=== PATIENT | male | born 1950 | race Caucasian/White ===

== ENCOUNTER 2020-01-25 00:34 | Emergency (ER) | payer MEDICARE, OTHER ==
[~2020-01-25] VITALS: Ht 170.2 cm; Wt 82.0 kg
--- NOTE | 2020-01-25 00:53 | NUR ---
69 YEAR OLD MALE TO ED VIA [facility] FOR PALPITATIONS. HE STATES HE HAS BEEN HAVING THESE PALPITATIONS FOR 1 WEEK BUT THEY HAVE WORSENED TODAY. SYMPTOMS STARTED AT 2330 AND PRODUCED FATIGUE AND NAUSEA. HE DENIES SOB, DIAPHORESIS, DYSPNEA, OR FEVER.
[2020-01-25] MEDS ORDERED: PLEASE ENTER ALLERGIES MC SCH (01:00)
[2020-01-25] MEDS ORDERED: SODIUM CHLORIDE FLUSH 10ML SYR IVF ONE (01:00)
--- NOTE | 2020-01-25 01:21 | NUR ---
BREAK RN: PT RESTING. ALLERGIES UPDATED. LAB AT BEDSIDE
[2020-01-25 01:38] LABS: BASOPHILS # (AUTO) 0.04 x10^3/uL (0-0.1); BASOPHILS % (AUTO) 1 % (0-1); EOSINOPHILS # (AUTO) 0.15 x10^3/uL (0-0.4); EOSINOPHILS % (AUTO) 2 % (1-7); LYMPHOCYTES # (AUTO) 1.56 x10^3/uL (1-3.4); LYMPHOCYTES % (AUTO) 22 % (22-44); MD NO; MEAN CORPUSCULAR HEMOGLOBIN 30.6 pg (27.5-34.5); MEAN CORPUSCULAR HGB CONC 32.6 g/dL (33.2-36.2); MEAN CORPUSCULAR VOLUME 93.9 fL (81-97); MEAN PLATELET VOLUME 9.3 fL (7.4-10.4); MONOCYTES # (AUTO) 0.52 x10^3/uL (0.2-0.8); MONOCYTES % (AUTO) 7 % (2-9); NEUTROPHILS % (AUTO) 68 % (42-75); PLATELET COUNT 169 x10^3/uL (130-400); RED BLOOD COUNT 4.98 x10^6/uL (4.38-5.82); RED CELL DISTRIBUTION WIDTH 13.6 % (9.4-14.8)
[2020-01-25 01:46] LABS: ALANINE AMINOTRANSFERASE 32 U/L (12-78); ALBUMIN 3.4 g/dL (3.4-5.0); ANION GAP 8 mmol/L (5-15); CALCIUM 8.2 mg/dL (8.5-10.1); CHLORIDE 108 mmol/L (98-107); CREATININE 1.12 mg/dL (0.7-1.3)
[2020-01-25 01:51] LABS: ALKALINE PHOSPHATASE 83 U/L (45-117); BILIRUBIN,TOTAL 0.6 mg/dL (0.2-1.0); T4 (THYROXINE) 7.2 mcg/dL (4.5-12.1); TOTAL PROTEIN 7.1 g/dL (6.4-8.2); TROPONIN I < 0.015 ng/mL (0.000-0.045)
[2020-01-25 02:08] VITALS: BP 135/72
--- NOTE | 2020-01-25 02:16 | NUR ---
Patient resting comfortably, eyes open, and in no apparent distress. Will continue to monitor.
== END 2020-01-25 02:52 | disposition home or self-care (01) ==
LOC: ED 02:12
DX: R00.2 Palpitations (principal); R11.0 Nausea; M79.89 Other specified soft tissue disorders; R07.89 Other chest pain; I10 Essential (primary) hypertension; E78.5 Hyperlipidemia, unspecified
CPT/HCPCS: 36415; 71045; 80053; 80307; 83735; 84436; 84443; 84484; 85025; 93005; 99285